=== PATIENT | female | born 1995 | race Caucasian/White ===

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

== ENCOUNTER 2017-03-31 17:32 | Outpatient (CLI) | payer OTHER ==
[~2017-03-31] VITALS: Ht 149.9 cm; Wt 72.8 kg
[2017-03-31 17:59] VITALS: Ht 149.9 cm; Wt 72.8 kg
[2017-03-31 18:00] VITALS: BP 128/66; PULSE 72
[2017-03-31] MEDS ORDERED: PRENAT PO (18:01)
--- NOTE | 2017-03-31 18:32 | RADRPT ---
PROCEDURE: Biophysical profile CLINICAL INDICATION: distress. induced hypertension. TECHNIQUE: Color and cage-scale ultrasound images of an intrauterine gestation were obtained. COMPARISON: None FINDINGS: A single live intrauterine gestation is identified in cephalic position with an estimated hear t rate of 141 beats per minute. The placenta is located anteriorly and is a grade 1. The cervix is obscured by head shadows. No evidence of abruption identified. MEGHNA is 7.3 cm. movement 2/2. tone 2/2. breathing movement 2/2. Qualitative AFV 2/2 Total biophysical profile 02/22 IMPRESSION: 02/22 biophysical profile. RPTAT: AA .Basil Guzman MD, MD Date Time Electronically viewed and signed by .Basil Guzman MD, MD on 03/31/2017 18:32 .P/
[2017-03-31 18:36] LABS: ADD UMIC YES; UR ASCORBIC ACID 40 mg/dL (NEGATIVE); UR BILIRUBIN (Dip) NEGATIVE (NEGATIVE); UR BLOOD (Dip) NEGATIVE (NEGATIVE); UR CLARITY SLIGHTLY CLOUDY (CLEAR); UR COLOR AMBER (YELLOW); UR GLUCOSE (Dip) NEGATIVE (NEGATIVE); UR KETONES (Dip) TRACE mg/dL (NEGATIVE); UR LEUKOCYTE ESTERASE (Dip) 1+ Leu/ul (NEGATIVE); UR MUCUS FEW /HPF (NONE SEEN); UR NITRITE (Dip) NEGATIVE (NEGATIVE); UR RBC 2 /HPF (0-5); UR SPECIFIC GRAVITY (Dip) 1.025 (1.003-1.030); UR SQUAMOUS EPITHELIAL CELL MODERATE /HPF (FEW); UR TOTAL PROTEIN (Dip) 1+ mg/dl (NEGATIVE); UR UROBILINOGEN (Dip) 1+ mg/dL (NEGATIVE)
[2017-03-31 18:53] LABS: BASOPHILS % 0.3 % (0.0-2.0); EOSINOPHILS # 0.1 10^3/ul (0.0-0.5); EOSINOPHILS % 1.2 % (0.0-7.0); HEMATOCRIT 36.5 % (37.0-47.0); HEMOGLOBIN 12.5 g/dl (12.0-16.0); LYMPHOCYTES # 2.2 10^3/ul (0.8-2.9); LYMPHOCYTES % 22.4 % (18.0-55.0); MEAN CORPUSCULAR HEMOGLOBIN 30.1 pg (29.0-33.0); MEAN CORPUSCULAR HGB CONC 34.2 g/dl (32.0-37.0); MEAN PLATELET VOLUME 12.1 fl (7.4-10.4); MONOCYTE # 0.8 10^3/ul (0.3-0.9); MONOCYTES % 7.8 % (0.0-13.0); NEUTROPHIL # 6.5 10^3/ul (1.6-7.5); NEUTROPHILS % 67.3 % (30.0-74.0); PLATELET COUNT 190 10^3/UL (140-415); RED BLOOD COUNT 4.15 10^6/ul (4.20-5.40); RED CELL DISTRIBUTION WIDTH 13.7 % (11.5-14.5); WHITE BLOOD COUNT 9.7 10^3/ul (4.8-10.8)
[2017-03-31 19:10] LABS: INR 0.89; PT RATIO 0.9
[2017-03-31 19:11] LABS: PARTIAL THROMBOPLASTIN TIME 25.6 Sec (25.0-35.0)
[2017-03-31 19:25] LABS: ALBUMIN 3.2 g/dl (3.3-4.9); BILIRUBIN,INDIRECT 0.1 mg/dl (0-1.1); BILIRUBIN,TOTAL 0.1 mg/dl (0.2-1.3); CALCIUM 9.1 mg/dl (8.4-10.2); CREATININE 0.59 mg/dl (0.44-1.00); POTASSIUM 4.1 mmol/L (3.5-5.1); TOTAL PROTEIN 6.4 g/dl (6.1-8.1); URIC ACID 6.3 mg/dl (3.1-7.9)
--- NOTE | 2017-03-31 21:07 | TRIAGE ---
OB Triage Datetime Report Generated by CPN: 03/31/2017 21:07 Datetime: 03/31/2017 18:05 Stage of : OB Triage Datetime: 03/31/2017 17:54 Stage of : OB Triage Assessment Type: Triage Maternal Assessment Level of Consciousness: Fully Conscious DTR's/Clonus: DTRs 2+; No Clonus Headache: Denies Blurred Vision: No Respiratory Effort: Unlabored; Regular Rhythm; Equal Expansion Breath Sounds, Left: Clear and Equal Breath Sounds, Right: Clear and Equal Nausea/Vomiting: Denies RUQ Epigastric Pain: Denies Facial Edema: None Temperature Route: Axillary Fall Risk Assessment History of Falling: (0) No Secondary Diagnosis: (0) No Ambulatory Aid: (0) Bedrest/Nurse Assist IV Therapy: (0) No Gait: (0) Normal/Bedrest/Immobile Mental Status: (0) Oriented to Own Ability Fall Score: 0 Fall Risk Score Definition: No Risk: No action required Labor Evaluation Frequency: 0 Monitor Mode: External Pattern: Normal: <= 5 Contractions in 10 Minutes Resting Tone [place]: Relaxed Heart Rate FHR Baseline Rate: 135 Monitor Mode: External US Variability: Moderate 6-25 bpm Accelerations: 10X10 Decelerations: None Category: Category I Pain Assessment Pain Scale: 0 Pain Presence: None/Denies Pain Type: N/A Pain Goal: 3 Pain Relief Measures: Comfort Measures Datetime: 03/31/2017 17:53 EGA: 38.6 Datetime: 03/31/2017 17:51 Time of Arrival: 03/31/2017 17:20 Arrived By: Ambulatory Arrived From: Office Chief Complaint: SENT FROM OFFICE TO EVALUATE FOR PIH, DENIES H/A, BLURRY VISION, EPIGASTRIC PAIN Movement: Present Contractions: Denies/Absent Rupture of Membranes: Denies Vaginal Bleeding: None Vaginal Discharge: Denies Recent Sexual Intercouse: Denies Abdominal Trauma: Not Applicable Time Provider Notified: 03/31/2017 18:05 Provider Notified: Dr Martinez Initial Plan: MONITOR, PIH PANEL, BPP/MEGHNA
--- NOTE | 2017-03-31 23:50 | PN ---
Triage Information Date/Time 03/31/17 Reason for visit: [facility] Weeks of Gestation 38w6d /Para primigravida Diabetes: none Hypertention: induced Additional information at clinic ,BP was 135/95, sent for [facility] evaluation Objective Vital Signs Date Time Temp Pulse Resp B/P Pulse Ox O2 Delivery O2 Flow Rate FiO2 03/31/17 18:00 98.2 72 128/66 Heart Rate Comments 140's Contractions: 6-10 Minutes Apart Results/Medications Result Diagram: 03/31/17 1840 03/31/171839 Results 24 hrs Laboratory Tests Test 03/31/17 17:45 03/31/17 18:40 Urine Color MARA Urine Clarity SLIGHTLY CLOUDY A Urine pH 6.0 Urine Specific [place] 1.025 Urine Ketones TRACE A Urine Nitrite NEGATIVE Urine Bilirubin NEGATIVE Urine Urobilinogen 1+ H Urine Leukocyte Esterase 1+ H Urine Microscopic RBC 2 Urine Microscopic WBC 6 H Urine Squamous Epithelial Cells MODERATE Urine Mucus FEW A Urine Hemoglobin NEGATIVE Urine Glucose NEGATIVE Urine Total Protein 1+ H White Blood Count 9.7 # Red Blood Count 4.15 L Hemoglobin 12.5 Hematocrit 36.5 L Mean Corpuscular Volume 88.0 Mean Corpuscular Hemoglobin 30.1 Mean Corpuscular Hemoglobin Concent 34.2 Red Cell Distribution Width 13.7 Platelet Count 190 # Mean Platelet Volume 12.1 H Neutrophils % 67.3 Lymphocytes % 22.4 Monocytes % 7.8 Eosinophils % 1.2 Basophils % 0.3 Nucleated Red Blood Cells % 0.0 Neutrophils # 6.5 Lymphocytes # 2.2 Monocytes # 0.8 Eosinophils # 0.1 Basophils # 0.0 Nucleated Red Blood Cells # 0.0 Prothrombin Time 12.0 L Prothrombin Time Ratio 0.9 INR International Normalized Ratio 0.89 Activated Partial Thromboplast Time 25.6 Fibrinogen 424.0 Sodium Level 134 L Potassium Level 4.1 Chloride Level 105 Carbon Dioxide Level 23 Anion Gap 10 Blood Urea Nitrogen 7 Creatinine 0.59 Glucose Level 93 Uric Acid 6.3 Calcium Level 9.1 Total Bilirubin 0.1 L Direct Bilirubin 0.00 Indirect Bilirubin 0.1 Aspartate Amino Transf (AST/SGOT) 27 Alanine Aminotransferase (ALT/SGPT) 26 Alkaline Phosphatase 147 H Total Protein 6.4 Albumin 3.2 L Globulin 3.20 Albumin/Globulin Ratio 1.00 Imaging Results BPP 8/8 but MEGHNA borderline oligohydramnios 7.3 Disposition: Discharge Assessment/Plan [id number] R/O PIH oligohydramnios plan discharge home with routine labor instructions and f/u for MEGHNA in 2days for oligo 24hr urine collection tomorrow am NISHI READ MD Mar 31, 2017 23:50
== END 2017-03-31 20:30 | disposition home or self-care (01) ==
LOC: OBT 17:32 → L-D 17:33 → OBT 20:30
PROVIDERS: ATTEND Obstetrics & Gynecology
DX: O13.3 Gestational [pregnancy-induced] hypertension without significant proteinuria, third trimester (principal); Z3A.38 38 weeks gestation of pregnancy
CPT/HCPCS: 36415; 76818; 80053; 81001; 84560; 85025; 85384; 85610; 85730; Z7500; G0463

== ENCOUNTER 2017-04-02 17:15 | Outpatient (CLI) | payer OTHER ==
[~2017-04-02 17:15] MED LIST: PRENAT PO
[2017-04-02 18:08] LABS: BASOPHILS % 0.4 % (0.0-2.0); EOSINOPHILS # 0.1 10^3/ul (0.0-0.5); EOSINOPHILS % 1.7 % (0.0-7.0); HEMATOCRIT 33.9 % (37.0-47.0); HEMOGLOBIN 11.8 g/dl (12.0-16.0); LYMPHOCYTES # 2.1 10^3/ul (0.8-2.9); LYMPHOCYTES % 29.1 % (18.0-55.0); MEAN CORPUSCULAR HEMOGLOBIN 30.4 pg (29.0-33.0); MEAN CORPUSCULAR HGB CONC 34.8 g/dl (32.0-37.0); MEAN CORPUSCULAR VOLUME 87.4 fl (72.0-104.0); MEAN PLATELET VOLUME 12.2 fl (7.4-10.4); MONOCYTE # 0.6 10^3/ul (0.3-0.9); MONOCYTES % 8.8 % (0.0-13.0); NEUTROPHIL # 4.2 10^3/ul (1.6-7.5); NEUTROPHILS % 59.1 % (30.0-74.0); PLATELET COUNT 181 10^3/UL (140-415); RED BLOOD COUNT 3.88 10^6/ul (4.20-5.40); RED CELL DISTRIBUTION WIDTH 13.4 % (11.5-14.5)
[2017-04-02 18:22] LABS: POSITIVE DIFF N
[2017-04-02 18:25] LABS: INR 0.87; PARTIAL THROMBOPLASTIN TIME 25.6 Sec (25.0-35.0); PROTIME 11.8 Sec (12.2-14.2); PT RATIO 0.9
[2017-04-02 18:26] LABS: ADD UMIC YES; UR AMORPHOUS CRYSTAL MODERATE /HPF (NONE SEEN); UR ASCORBIC ACID 40 mg/dL (NEGATIVE); UR BACTERIA FEW /HPF (NONE SEEN); UR BILIRUBIN (Dip) NEGATIVE (NEGATIVE); UR BLOOD (Dip) NEGATIVE (NEGATIVE); UR CLARITY SLIGHTLY CLOUDY (CLEAR); UR COLOR YELLOW (YELLOW); UR GLUCOSE (Dip) NEGATIVE (NEGATIVE); UR KETONES (Dip) NEGATIVE (NEGATIVE); UR LEUKOCYTE ESTERASE (Dip) TRACE Leu/ul (NEGATIVE); UR NITRITE (Dip) NEGATIVE (NEGATIVE); UR RBC 5 /HPF (0-5); UR SPECIFIC GRAVITY (Dip) 1.005 (1.003-1.030); UR SQUAMOUS EPITHELIAL CELL MODERATE /HPF (FEW); UR TOTAL PROTEIN (Dip) NEGATIVE (NEGATIVE); UR UROBILINOGEN (Dip) NEGATIVE (NEGATIVE)
--- NOTE | 2017-04-02 18:34 | RADRPT ---
PROCEDURE: US OB biophysical profile. CLINICAL INDICATION: decreased movements, PIH TECHNIQUE: Multiple sonographic images of the pelvis were obtained. The images were reviewed on a PACS workstation. COMPARISON: 03/31/2017 FINDINGS: There is a single viable intrauterine gestation. Cardiac activity is present with 140 beats per min [place]. There is a vertex presentation. The placenta is anterior. There is no evidence of placental abruption. There is a slightly decreased amount of amniotic fluid with an MEGHNA = 7.3 cm. Biophysical profile: movement 2/2 tone 2/2. breathing 2/2 MEGHNA 2/2 Total 02/22 RPTAT: AA . IMPRESSION: Normal biophysical profile. Slightly decreased MEGHNA. . .Lino Avila MD, Date Time Electronically viewed and signed by .Lino Avila MD, MD on 04/02/2017 18:34 .S/
[2017-04-02 18:40] LABS: ALBUMIN 3.2 g/dl (3.3-4.9); CALCIUM 8.9 mg/dl (8.4-10.2); CREATININE 0.54 mg/dl (0.44-1.00); POTASSIUM 4.1 mmol/L (3.5-5.1); TOTAL PROTEIN 6.4 g/dl (6.1-8.1); URIC ACID 6.1 mg/dl (3.1-7.9)
[2017-04-02 19:53] LABS: SCRET 0.54 mg/dl (0.44-1.00)
--- NOTE | 2017-04-02 19:53 | PN ---
Triage Information Date/Time 04/02/2017 Reason for visit: Weeks of Gestation 89+ /Para 1 para 0 Diabetes: none Hypertention: none Additional information Was sent in to evaluate for possible -induced hypertension Brought 24 hour urine collection for protein results of which still pending All other labs are normal Urine protein today is negative Objective Blood pressures are within normal limits and comparable to course Heart Rate: 140's Heart Rate Comments Reactive Contractions: None Results/Medications Result Diagram: 04/02/17 1750 04/02/17 1750 Results 24 hrs Laboratory Tests Test 04/02/17 17:50 White Blood Count 7.0 # Red Blood Count 3.88 L Hemoglobin 11.8 L Hematocrit 33.9 L Mean Corpuscular Volume 87.4 Mean Corpuscular Hemoglobin 30.4 Mean Corpuscular Hemoglobin Concent 34.8 Red Cell Distribution Width 13.4 Platelet Count 181 Mean Platelet Volume 12.2 H Neutrophils % 59.1 Lymphocytes % 29.1 Monocytes % 8.8 Eosinophils % 1.7 Basophils % 0.4 Nucleated Red Blood Cells % 0.0 Neutrophils # 4.2 Lymphocytes # 2.1 Monocytes # 0.6 Eosinophils # 0.1 Basophils # 0.0 Nucleated Red Blood Cells # 0.0 Prothrombin Time 11.8 L Prothrombin Time Ratio 0.9 INR International Normalized Ratio 0.87 Activated Partial Thromboplast Time 25.6 Fibrinogen 487.0 #H Urine Color YELLOW Urine Clarity SLIGHTLY CLOUDY A Urine pH 7.0 Urine Specific [place] 1.005 Urine Ketones NEGATIVE Urine Nitrite NEGATIVE Urine Bilirubin NEGATIVE Urine Urobilinogen NEGATIVE Urine Leukocyte Esterase TRACE A Urine Microscopic RBC 5 Urine Microscopic WBC 5 Urine Squamous Epithelial Cells MODERATE Urine Amorphous Crystals MODERATE Urine Bacteria FEW A Urine Hemoglobin NEGATIVE Urine Glucose NEGATIVE Urine Total Protein NEGATIVE Sodium Level 134 L Potassium Level 4.1 Chloride Level 107 Carbon Dioxide Level 22 Anion Gap 9 Blood Urea Nitrogen 4 L Creatinine 0.54 Glucose Level 84 Uric Acid 6.1 Calcium Level 8.9 Total Bilirubin 0.0 L Direct Bilirubin 0.00 Indirect Bilirubin 0.0 Aspartate Amino Transf (AST/SGOT) 26 Alanine Aminotransferase (ALT/SGPT) 23 Alkaline Phosphatase 152 H Total Protein 6.4 Albumin 3.2 L Globulin 3.20 Albumin/Globulin Ratio 1.00 Disposition: Discharge Assessment/Plan PIH ruled out We will follow patient as outpatient Warning signs in regards to blurred vision or epigastric pain or headaches given to the patient MISA KENT MD Apr 02, 2017 19:53
== END 2017-04-02 20:09 | disposition home or self-care (01) ==
LOC: OBT 17:15 → L-D 17:16 → OBT 20:09
PROVIDERS: ATTEND Obstetrics & Gynecology
DX: Z13.89 Encounter for screening for other disorder (principal)
CPT/HCPCS: 76818; 80053; 81001; 82575; 84156; 84560; 85025; 85384; 85610; 85730

== ENCOUNTER 2017-04-05 08:54 | Outpatient (CLI) | payer OTHER ==
[~2017-04-05] VITALS: Ht 149.9 cm; Wt 72.5 kg
[2017-04-05 09:29] VITALS: BP 119/89; PULSE 80; RESP 18; Ht 149.9 cm; Wt 72.5 kg
--- NOTE | 2017-04-05 11:00 | RADRPT ---
PROCEDURE: US OB biophysical profile. CLINICAL INDICATION: decreased movements, contractions TECHNIQUE: Multiple sonographic images of the pelvis were obtained. The images were reviewed on a PACS workstation. COMPARISON: 04/02/2017 FINDINGS: There is a single viable intrauterine gestation. Cardiac activity is present with 137 beats per min [place]. There is a vertex presentation. The placenta is anterior. There is no evidence of placental abruption. There is a borderline normal amount of amniotic fluid with an MEGHNA = 8.1 cm. Biophysical profile: movement 2/2 tone 2/2. breathing 2/2 MEGHNA 2/2 Total 02/22 RPTAT: AA . IMPRESSION: Normal biophysical profile. Borderline normal MEGHNA measuring 8.1 cm. .Lino Avila MD, Date Time Electronically viewed and signed by .Lino Avila MD, on 04/05/2017 11:00 .S/
--- NOTE | 2017-04-05 16:30 | PN ---
Triage Information Date/Time 04/05/2017 Reason for visit: Uterine contractions Weeks of Gestation 39+ /Para 1 /0 Diabetes: none Hypertention: none Additional information refer for U/C q 10 minutes Objective Vital Signs Date Time Temp Pulse Resp B/P Pulse Ox O2 Delivery O2 Flow Rate FiO2 04/05/17 09:29 97.8 80 18 119/89 99 Room Air Heart Rate: 140's Heart Rate Comments REACTIVE Contractions: >10 Minutes Apart Exam RETA/ CLOSED unchanged Results/Medications Imaging Results Normal biophysical profile. Borderline normal MEGHNA measuring 8.1 cm. Disposition: Discharge Assessment/Plan early labor home with labor instructions: refer back if has ROM and or U/C q 4-5 minutes and ;...... MISA KENT MD Apr 05, 2017 16:30
== END 2017-04-05 16:25 | disposition home or self-care (01) ==
LOC: OBT 08:54 → L-D 08:54 → OBT 16:25
PROVIDERS: ATTEND Obstetrics & Gynecology
DX: O47.1 False labor at or after 37 completed weeks of gestation (principal); Z3A.39 39 weeks gestation of pregnancy
CPT/HCPCS: 76818; G0463

== ENCOUNTER 2017-04-07 19:44 | Inpatient (IN) | payer OTHER ==
[~2017-04-07] VITALS: Ht 149.9 cm; Wt 72.6 kg
[2017-04-07 20:27] VITALS: Ht 149.9 cm; Wt 72.6 kg
[2017-04-07] MEDS ORDERED: OXYCODONE/ASPIRIN (4.88/325) TAB PO PRN (21:30)
[2017-04-07] MEDS ORDERED: IBUPROFEN 600 MG TAB PO PRN (21:30)
[2017-04-07] MEDS ORDERED: OXYTOCIN 30 UNITS/LR 500 ML IV PRN (21:30)
[2017-04-07] MEDS ORDERED: MISOPROSTOL 200 MCG TAB PR PRN (21:30)
[2017-04-07] MEDS ORDERED: OXYTOCIN 30 UNITS/LR 500 ML IV SCH ×2 (21:30)
[2017-04-07] MEDS ORDERED: METHYLERGONOVINE 0.2 MG INJ IM PRN (21:30)
[2017-04-07] MEDS ORDERED: LIDOCAINE 1% (MPF) 30 ML INJ INJ PRN (21:30)
[2017-04-07] MEDS ORDERED: MINERAL OIL LIGHT 10 ML VIAL TOP PRN (21:30)
[2017-04-07] MEDS ORDERED: CARBOPROST 250 MCG INJ IM PRN (21:30)
[2017-04-07] MEDS ORDERED: LACTATED RINGER'S 1,000 ML IV PRN (21:30)
[2017-04-07] MEDS: LACTATED RINGER'S 1,000 ML IV SCH (21:57)
--- NOTE | 2017-04-07 22:02 | RADRPT ---
PROCEDURE: US OB biophysical profile. CLINICAL INDICATION: decreased movements TECHNIQUE: Multiple sonographic images of the pelvis were obtained. The images were reviewed on a PACS workstation. COMPARISON: No pertinent prior examinations were submitted for comparison. FINDINGS: There is a single viable intrauterine gestation. Cardiac activity is present with 139 beats per min [place]. There is a vertex presentation. The placenta is anterior, grade II in appearance. There is a normal amount of amniotic fluid with an MEGHNA = 6.6 cm. Biophysical profile: movement 2/2 tone 2/2. breathing 2/2 MEGHNA 2/2 Total 02/22 IMPRESSION: Normal biophysical profile. RPTAT: HIKT . .Shamir Zhang MD, MD Date Time Electronically viewed and signed by .Shamir Zhang MD, on 04/07/2017 22:02 .T/
[2017-04-07 22:13] LABS: BASOPHILS % 0.3 % (0.0-2.0); EOSINOPHILS # 0.1 10^3/ul (0.0-0.5); EOSINOPHILS % 0.7 % (0.0-7.0); HEMATOCRIT 35.6 % (37.0-47.0); HEMOGLOBIN 12.3 g/dl (12.0-16.0); LYMPHOCYTES # 2.6 10^3/ul (0.8-2.9); LYMPHOCYTES % 26.6 % (18.0-55.0); MEAN CORPUSCULAR HEMOGLOBIN 30.1 pg (29.0-33.0); MEAN CORPUSCULAR HGB CONC 34.6 g/dl (32.0-37.0); MEAN PLATELET VOLUME 12.7 fl (7.4-10.4); MONOCYTE # 0.7 10^3/ul (0.3-0.9); MONOCYTES % 7.2 % (0.0-13.0); NEUTROPHIL # 6.4 10^3/ul (1.6-7.5); NEUTROPHILS % 64.4 % (30.0-74.0); PLATELET COUNT 180 10^3/UL (140-415); RED BLOOD COUNT 4.09 10^6/ul (4.20-5.40); RED CELL DISTRIBUTION WIDTH 13.4 % (11.5-14.5); WHITE BLOOD COUNT 9.9 10^3/ul (4.8-10.8)
[2017-04-07 22:35] LABS: INR 0.84; PROTIME 11.5 Sec (12.2-14.2); PT RATIO 0.9
[2017-04-07 22:36] LABS: PARTIAL THROMBOPLASTIN TIME 26.5 Sec (25.0-35.0)
[2017-04-07 23:47] LABS: ALBUMIN 3.4 g/dl (3.3-4.9); ALBUMIN/GLOBULIN RATIO 1.09; BILIRUBIN,INDIRECT 0.1 mg/dl (0-1.1); BILIRUBIN,TOTAL 0.1 mg/dl (0.2-1.3); CALCIUM 9.3 mg/dl (8.4-10.2); CREATININE 0.48 mg/dl (0.44-1.00); TOTAL PROTEIN 6.5 g/dl (6.1-8.1)
[2017-04-08] MEDS: BUTORPHANOL 2 MG INJ IV PRN ×4 (01:10→09:07)
[2017-04-08] MEDS: LACTATED RINGER'S 1,000 ML IV SCH ×2 (03:43→11:13)
[2017-04-08] MEDS: OXYTOCIN 30 UNITS/LR 500 ML IV SCH ×4 (16:09→20:26)
--- NOTE | 2017-04-08 16:26 | LDN ---
Date/Time of Note Date/Time of Note DATE: 04/08/17 TIME: 16:23 Delivery Summary Placenta Delivered: Spontaneously Episiotomy: No Perineal laceration: 2 Anesthesia type: Local Estimated blood loss: 350 Sponge & Needle done & correct: Yes All needle counts correct: Yes Any foreign bodies felt in the: No Problems: Delivery Information Sex Infant Sex: female Apgars 1 Minute: 9 5 Minute: 9 Suctioning Nose & mouth suctioned at [place]: Yes Umbilical Cord Umbilical cord with: 3 Vessels Cord presentations: no nuchal cord Cord Blood was obtained: Yes Mother & Baby Disposition Disposition Mom & Baby to Maternity; Good: Yes CARRIE GARCIA Apr 08, 2017 16:25
[2017-04-08] MEDS ORDERED: WITCH HAZEL/GLYCERIN PAD PR PRN (16:30)
[2017-04-08] MEDS ORDERED: HYDROCODONE/APAP (5/325) TAB PO PRN ×2 (16:30)
[2017-04-08] MEDS ORDERED: BENZOCAINE 20% 56 ML SPRAY TOP PRN (16:30)
[2017-04-08] MEDS ORDERED: MISOPROSTOL 200 MCG TAB PR PRN (16:30)
[2017-04-08] MEDS ORDERED: DIBUCAINE 1% 30 GM OINT PR PRN (16:30)
[2017-04-08] MEDS ORDERED: METHYLERGONOVINE 0.2 MG INJ IM PRN (16:30)
[2017-04-08] MEDS ORDERED: LANOLIN 7 GM TUBE TOP PRN (16:30)
[2017-04-08] MEDS ORDERED: CARBOPROST 250 MCG INJ IM PRN (16:30)
[2017-04-08] MEDS ORDERED: OXYTOCIN 30 UNITS/LR 500 ML IV PRN (16:30)
[2017-04-08 18:05] VITALS: BP 115/56; PULSE 63; RESP 14
--- NOTE | 2017-04-08 18:13 | DELSUM ---
Delivery Summary A-C Datetime Report Generated by CPN: 04/08/2017 18:12 DELIVERY PERSONNEL General Partner: Afua Ramos MATERNAL INFORMATION Delivery Anesthesia: Local Medications in Delivery: LR WITH 30 UNITS OF PITOCIN Estimated Blood Loss (ml): 350 Placenta Cultured: No Maternal Complications: None LABOR SUMMARY EDC: 04/08/2017 00:00 No. Babies in Womb: 1 Attempted: No Labor Anesthesia: None LABOR INFORMATION Reason for Induction: Oligohydramnios; Other Reason for Induction- Other: ELECTIVE Onset of Labor: 04/07/2017 08:00 Complete Dilatation: 04/08/2017 12:37 Oxytocin: Induction Group B Beta Strep: Negative Group B Beta Strep: Negative Antibiotics # of Doses: 0 Steroids Given: None Reason Steroids Not Administered: Not Applicable MEMBRANES Membranes Rupture Method: Spontaneous Rupture of Membranes: 04/08/2017 08:26 Length of Rupture (hr): 7.58 Amniotic Fluid Color: Clear Amniotic Fluid Color: Clear Amniotic Fluid Color: Clear Amniotic Fluid Amount: Moderate Amniotic Fluid Amount: Moderate Amniotic Fluid Amount: Large Amniotic Fluid Odor: None Amniotic Fluid Odor: None Amniotic Fluid Odor: None STAGES OF LABOR Stage 1 hr: 28 Stage 1 min: 37 Stage 2 hr: 3 Stage 2 min: 24 Stage 3 hr: 0 Stage 3 min: 4 Total Time in Labor hr: 32 Total Time in Labor min: 5 VAGINAL DELIVERY Episiotomy: None Laceration Extension: First Degree Laceration Type: Perineal Initial Vag Sponge Count: 10 Final Vag Sponge Count: 10 Initial Vag Sharps Count: 2 Final Vag Sharps Count: 2 Sponge Count Correct: Yes Sharps Count Correct: Yes BABY A INFORMATION Delivery Date/Time: 04/08/2017 16:01 Method of Delivery: Vaginal Born in Route : No : N/A Forceps: N/A Vacuum Extraction: N/A Shoulder Dystocia : No SHOULDER DYSTOCIA BABY A Delivery Date/Time: 04/08/2017 16:01 PRESENTATION/POSITION BABY A Presentation: Cephalic Presentation: Cephalic Presentation: Cephalic Presentation: Cephalic Presentation: Cephalic Presentation: Cephalic Presentation: Cephalic Presentation: Cephalic Cephalic Presentation: Vertex Vertex Position: Left Occipital Anterior Breech Presentation: N/A PLACENTA INFORMATION BABY A Placenta Delivery Time : 04/08/2017 16:05 Placenta Method of Delivery: Spontaneous Placenta Status: Delivered SCORES BABY A Heart Rate 1 min: >100 bpm Resp Effort 1 min: Good Cry Reflex Irritability 1 min: Cough/Sneeze/Pulls Away Muscle Tone 1 min: Active Motion Color 1 min: Blue/Pale Resuscitation Effort 1 min: Tactile Stimulation SCORE 1 MIN: 8 Heart Rate 5 min: >100 bpm Resp Effort 5 min: Good Cry Reflex Irritability 5 min: Cough/Sneeze/Pulls Away Muscle Tone 5 min: Active Motion Color 5 min: Body [place], Extremit Blue Resuscitation Effort 5 min: Tactile Stimulation SCORE 5 MIN: 9 INFORMATION BABY A Gestational Age at Delivery: 40.0 Gestational Status: Full Term- 39- 40.6 Weeks Infant Outcome : Liveborn Infant Condition : Stable Infant Sex: Female IDENTIFICATION/MEDS BABY A ID Band Number: [id number] ID Band Location: Right Leg; Left Arm Sensor Applied: Yes Sensor Number: [id number] Sensor Location : Cord Clamp Vitamin K Given : Not Given Erythromycin Given: Not Given WEIGHT/LENGTH BABY A Birthweight (gm): 2850 Weight (lb): 6 Infant Weight (oz): 5 Infant Length (in): 18.50 Infant Length (cm): 46.99 CORD INFORMATION BABY A No. Cord Vessels: 3 Nuchal Cord : N/A Cord Blood Taken: Yes Suction: Mouth; Nose ASSESSMENT BABY A Infant Complications: Multiple Variable Decels; Oligohydramnios Physical Findings at Delivery: Molding of the Head Infant Respirations: Appears Normal Planing Machine Operator/ALS Called : No Care By: nicu team Transferred To: Remains with Mother
[2017-04-08 20:00] VITALS: BP 116/58; PULSE 88; RESP 18
[2017-04-08] MEDS: LACTATED RINGER'S 1,000 ML IV* SCH (21:02)
[2017-04-09] VITALS: BP_SYST 102; BP_DIAS 50; BP_DIAS 51; PULSE 100; PULSE 93; RESP 18
[2017-04-09] MEDS: LACTATED RINGER'S 1,000 ML IV* SCH ×3 (00:26→16:26)
[2017-04-09 04:00] VITALS: BP 102/51; PULSE 93; RESP 18
[2017-04-09] MEDS: IBUPROFEN 600 MG TAB PO SCH ×3 (06:43→18:05)
[2017-04-09 07:30] VITALS: BP 108/57; PULSE 73; RESP 16
[2017-04-09 09:42] LABS: ABNORMAL IP MESSAGE 1; BASOPHIL # 0.1 10^3/ul (0.0-0.1); BASOPHILS % 0.3 % (0.0-2.0); EOSINOPHILS # 0.1 10^3/ul (0.0-0.5); EOSINOPHILS % 0.3 % (0.0-7.0); HEMATOCRIT 29.5 % (37.0-47.0); HEMOGLOBIN 10.3 g/dl (12.0-16.0); LYMPHOCYTES # 2.7 10^3/ul (0.8-2.9); LYMPHOCYTES % 13.6 % (18.0-55.0); MEAN CORPUSCULAR HEMOGLOBIN 30.9 pg (29.0-33.0); MEAN CORPUSCULAR HGB CONC 34.9 g/dl (32.0-37.0); MEAN CORPUSCULAR VOLUME 88.6 fl (72.0-104.0); MEAN PLATELET VOLUME 12.1 fl (7.4-10.4); MONOCYTE # 1.5 10^3/ul (0.3-0.9); MONOCYTES % 7.7 % (0.0-13.0); NEUTROPHIL # 15.4 10^3/ul (1.6-7.5); NEUTROPHILS % 77.2 % (30.0-74.0); PLATELET COUNT 157 10^3/UL (140-415); RED BLOOD COUNT 3.33 10^6/ul (4.20-5.40); RED CELL DISTRIBUTION WIDTH 13.9 % (11.5-14.5); WHITE BLOOD COUNT 19.8 10^3/ul (4.8-10.8)
--- NOTE | 2017-04-09 11:12 | PD.PPDC ---
ELECTRIC POWER SUPERINTENDENT Discharge Instruction Condition Patient Condition: Good Diet Diet: Resume Regular Diet Activity/Restrictions Activity: Normal Activity May Shower Restrictions: No Sexual Activity Nothing in the Vagina No [place] No Tampons, douche Follow-up Follow-up with Physician: 6, Week/Weeks Return to clinic for TRAVEL INSURANCE AGENT Instructions: Fever greater than 101 Chills Worsening abdominal pain Excessive Vaginal Bleeding OB Instructions: Breast Tenderness Depression CONNIE PATRICK MD Apr 09, 2017 11:12
--- NOTE | 2017-04-09 11:16 | DS ---
Date/Time of Note Date/Time of Note DATE: 04/09/17 TIME: 11:14 Obstetrical Discharge Record Final Diagnosis Final Diagnosis: Term delivered Vaginal Delivery Obstetrical Delivery: Spontaneous, Laceration, Repaired Complications Augmentation: Yes Induction: Yes Condition on Discharge Physical Assessment Last Vitals: T=98.3 BP 108/57 Voiding: Yes Bowel Movement: Yes Breast: Soft, non-tender Fundus: Firm Calf Tenderness: No Patient Condition: Good CONNIE PATRICK MD Apr 09, 2017 11:16
[2017-04-09 15:46] VITALS: BP 125/59; PULSE 100; RESP 20
[2017-04-09 20:00] VITALS: BP 122/63; PULSE 77; RESP 16
[2017-04-10] MEDS: LACTATED RINGER'S 1,000 ML IV* SCH ×2 (00:26→08:26)
[2017-04-10 00:45] VITALS: BP 116/63; PULSE 80; RESP 16
[2017-04-10] MEDS: IBUPROFEN 600 MG TAB PO SCH ×3 (01:00→12:00)
[2017-04-10 04:30] VITALS: BP 118/64; PULSE 82; RESP 16
[2017-04-10 06:48] LABS: BASOPHILS % 0.3 % (0.0-2.0); EOSINOPHILS # 0.2 10^3/ul (0.0-0.5); HEMATOCRIT 28.6 % (37.0-47.0); HEMOGLOBIN 9.5 g/dl (12.0-16.0); LYMPHOCYTES # 2.9 10^3/ul (0.8-2.9); MEAN CORPUSCULAR HEMOGLOBIN 29.7 pg (29.0-33.0); MEAN CORPUSCULAR HGB CONC 33.2 g/dl (32.0-37.0); MEAN CORPUSCULAR VOLUME 89.4 fl (72.0-104.0); MEAN PLATELET VOLUME 12.6 fl (7.4-10.4); MONOCYTE # 1.2 10^3/ul (0.3-0.9); MONOCYTES % 8.3 % (0.0-13.0); NEUTROPHIL # 10.2 10^3/ul (1.6-7.5); NEUTROPHILS % 69.4 % (30.0-74.0); PLATELET COUNT 166 10^3/UL (140-415); RED CELL DISTRIBUTION WIDTH 14.1 % (11.5-14.5); WHITE BLOOD COUNT 14.6 10^3/ul (4.8-10.8)
[2017-04-10 08:00] VITALS: BP 108/59; PULSE 70; RESP 16
[2017-04-10] MEDS ORDERED: VARICELLA VACCINE LIVE/PF 1,350 UNIT/0.5 ML ML SC* ONE (09:00)
[2017-04-10] MEDS ORDERED: MEASLES,MUMPS,RUBELLA VACCINE INJ SC* ONE (09:00)
[2017-04-10] MEDS ORDERED: DIPHTH/TET/ACEL PERTUSS (ADULT) 0.5 ML VIAL IM* ONE (09:00)
== END 2017-04-10 16:00 | disposition home or self-care (01) | DRG 775 ==
LOC: OBT 19:44 → L-D 19:45 → OBT 21:20 → PP1 04-08 17:51
PROVIDERS: ADMIT Obstetrics & Gynecology; ATTEND Obstetrics & Gynecology
PROC: 10E0XZZ Delivery of Products of Conception, External Approach (ICD-10-PCS; principal; 2017-04-08)
PROC: 0KQM0ZZ Repair Perineum Muscle, Open Approach (ICD-10-PCS; 2017-04-08)
PROC: 3E033VJ Introduction of Other Hormone into Peripheral Vein, Percutaneous Approach (ICD-10-PCS; 2017-04-08)
DX: O48.0 Post-term pregnancy (principal); O70.1 Second degree perineal laceration during delivery; Z3A.40 40 weeks gestation of pregnancy; Z37.0 Single live birth
CPT/HCPCS: 76818; 80053; 85025; 85610; 85730; 86592; 86900; 86901; 87340; 90715; 90716; 99464; G0463; J0595; J2590; J7120